=== PATIENT | female | born 1955 | race African-American/Black ===

== ENCOUNTER 2021-05-05 21:05 | Inpatient (IN) | payer MEDICARE, MEDICAID ==
[~2021-05-05] VITALS: Ht 172.7 cm; Wt 135.2 kg
[2021-05-05] MEDS ORDERED: FUROSEMIDE 40MG/4ML VIAL IVP ONE (21:30)
[2021-05-05] MEDS ORDERED: ASPIRIN 81MG TABLET PO ONE (21:30)
[2021-05-05 22:39] LABS: BASOPHILS % 0.9 % (0.0-2.0); EOSINOPHILS % 5.2 % (0.0-5.0); HEMATOCRIT. 28.6 % (36.0-48.0); HEMOGLOBIN. 9.2 g/dL (12.0-16.0); LYMPHOCYTES % 12.4 % (20.0-50.0); MEAN CORPUSCULAR HEMOGLOBIN 23.1 pg (28.0-32.0); MEAN CORPUSCULAR VOLUME 71.8 fL (81.0-99.0); MEAN PLATELET VOLUME 8.2 fl (7.4-10.4); NEUTROPHILS % 74.5 % (40.0-76.0); PLATELET 192 x1000/uL (130-400); RED BLOOD CELL COUNT 3.98 mill/uL (4.2-5.4); RED CELL DISTRIBUTION WIDTH 22.5 % (11.6-14.6)
[2021-05-05 22:44] LABS: CHLORIDE 113 mEq/L (98-107)
[2021-05-05 22:51] LABS: PLATELET ESTIMATE NORMAL
[2021-05-05 22:59] LABS: CLARITY URINE CLEAR (CLEAR); COLOR URINE YELLOW (YELLOW); KETONES URINE NEGATIVE (NEGATIVE); LEUKOCYTE ESTERASE URINE NEGATIVE (NEGATIVE); NITRITE URINE NEGATIVE (NEGATIVE); OCCULT BLOOD URINE NEGATIVE (NEGATIVE); PROTEIN URINE 3+ (NEGATIVE); SPECIFIC GRAVITY URINE 1.014 (1.005-1.030); UROBILINOGEN URINE 0.2 E.U./dL (0.2-1.0)
[2021-05-05] MEDS ORDERED: AMLODIPINE 5MG TABLET PO ONE (23:00)
[2021-05-05] MEDS ORDERED: CLONIDINE 0.1MG TABLET PO ONE (23:00)
[2021-05-06] VITALS (8 sets, daily range): BP systolic 134–187; BP diastolic 50–92
[2021-05-06] MEDS ORDERED: ASPI-864 PO (03:18)
[2021-05-06] MEDS ORDERED: AMLO5TAB88 PO (03:18)
[2021-05-06] MEDS ORDERED: GABA-532 PO (03:18)
[2021-05-06] MEDS ORDERED: FOLI-43 PO (03:18)
[2021-05-06] MEDS ORDERED: ACETAMINOPHEN 325MG TABLET PO PRN (03:45)
[2021-05-06] MEDS ORDERED: ONDANSETRON HCL 4MG/2ML INJ IV PRN (03:45)
[2021-05-06] MEDS ORDERED: ALBUTEROL 6.7GM HFA INHALER ORI PRN (03:45)
[2021-05-06] MEDS ORDERED: LISINOPRIL 20MG TABLET PO SCH (09:00)
[2021-05-06] MEDS ORDERED: CARVEDILOL 6.25 MG TABLET PO SCH (09:00)
[2021-05-06] MEDS ORDERED: ENOXAPARIN 30MG/0.3ML SYR SUBCUT SCH (09:00)
[2021-05-06] MEDS: FUROSEMIDE 40MG/4ML VIAL IVP SCH ×2 (09:07→18:00)
[2021-05-06] MEDS: AMLODIPINE 10MG TABLET PO SCH (09:08)
[2021-05-06] MEDS ORDERED: HYDRALAZINE HCL 100MG TABLET PO SCH (12:15)
[2021-05-06 20:09] LABS: HEMATOCRIT. 26.7 % (36.0-48.0); HEMOGLOBIN. 8.7 g/dL (12.0-16.0); MEAN CORPUSCULAR HEMOGLOBIN 23.5 pg (28.0-32.0); MEAN CORPUSCULAR VOLUME 71.9 fL (81.0-99.0); MEAN PLATELET VOLUME 8.2 fl (7.4-10.4); PLATELET 147 x1000/uL (130-400); RED BLOOD CELL COUNT 3.72 mill/uL (4.2-5.4)
[2021-05-06] MEDS: HYDRALAZINE HCL 100MG TABLET PO SCH (21:35)
[2021-05-06] MEDS: CARVEDILOL 12.5MG TABLET PO SCH (21:35)
[2021-05-06 21:52] LABS: PLATELET ESTIMATE NORMAL
[2021-05-07] VITALS: BP 150/82
[2021-05-07] MEDS ORDERED: ALBUTEROL (0.083%) 2.5MG/3ML NEB HHN PRN (02:00)
[2021-05-07] MEDS ORDERED: CLONIDINE 0.1MG TABLET PO PRN (02:00)
[2021-05-07] MEDS ORDERED: DEXTROSE 50% WATER 50ML SYRINGE IV PRN ×2 (08:15→08:30)
[2021-05-07 08:18] VITALS: BP 157/63
[2021-05-07] MEDS: AMLODIPINE 10MG TABLET PO SCH (08:58)
[2021-05-07] MEDS: FUROSEMIDE 40MG/4ML VIAL IVP SCH ×2 (08:58→17:25)
[2021-05-07] MEDS: ENOXAPARIN 40MG/0.4ML SYR SUBCUT SCH (08:58)
[2021-05-07] MEDS: CARVEDILOL 12.5MG TABLET PO SCH ×2 (08:58→22:45)
[2021-05-07] MEDS: HYDRALAZINE HCL 100MG TABLET PO SCH ×2 (08:59→22:45)
[2021-05-07 09:08] LABS: BASOPHILS % 1.2 % (0.0-2.0); HEMATOCRIT. 25.8 % (36.0-48.0); HEMOGLOBIN. 8.1 g/dL (12.0-16.0); LYMPHOCYTES % 19.7 % (20.0-50.0); MEAN CORPUSCULAR HEMOGLOBIN 23.1 pg (28.0-32.0); MEAN CORPUSCULAR VOLUME 73.5 fL (81.0-99.0); MONOCYTES % 8.9 % (2.0-8.0); NEUTROPHILS % 64.2 % (40.0-76.0); PLATELET 140 x1000/uL (130-400); RED BLOOD CELL COUNT 3.52 mill/uL (4.2-5.4); RED CELL DISTRIBUTION WIDTH 22.5 % (11.6-14.6)
[2021-05-07] MEDS: BLOOD SUGAR DIAGNOSTIC STRIP TEST SCH ×5 (12:05→21:00)
[2021-05-07 12:07] VITALS: BP 147/60
[2021-05-07] MEDS: INSULIN LISPRO 100 UNITS/ML SUBCUT SCH ×3 (12:09→22:46)
[2021-05-07 15:59] VITALS: BP 149/73
[2021-05-07 20:00] VITALS: BP 169/77
[2021-05-08] VITALS: BP 155/72
[2021-05-08 04:00] VITALS: BP_SYST 129; BP_SYST 145; BP_SYST 156; BP_DIAS 60; BP_DIAS 62; BP_DIAS 84
[2021-05-08 05:11] LABS: EOSINOPHILS % 4.8 % (0.0-5.0); HEMOGLOBIN. 8.4 g/dL (12.0-16.0); MEAN CORPUSCULAR HEMOGLOBIN 22.8 pg (28.0-32.0); MEAN CORPUSCULAR VOLUME 72.9 fL (81.0-99.0); MEAN PLATELET VOLUME 8.2 fl (7.4-10.4); MONOCYTES % 8.6 % (2.0-8.0); NEUTROPHILS % 65.6 % (40.0-76.0); PLATELET 144 x1000/uL (130-400); RED CELL DISTRIBUTION WIDTH 21.9 % (11.6-14.6)
[2021-05-08] MEDS: BLOOD SUGAR DIAGNOSTIC STRIP TEST SCH ×4 (07:33→21:05)
[2021-05-08] MEDS: INSULIN LISPRO 100 UNITS/ML SUBCUT SCH ×4 (07:37→21:05)
[2021-05-08 08:03] VITALS: BP 150/57
[2021-05-08] MEDS: ENOXAPARIN 40MG/0.4ML SYR SUBCUT SCH (09:13)
[2021-05-08] MEDS: CARVEDILOL 12.5MG TABLET PO SCH ×2 (09:14→21:02)
[2021-05-08] MEDS: AMLODIPINE 10MG TABLET PO SCH (09:14)
[2021-05-08] MEDS: FUROSEMIDE 40MG/4ML VIAL IVP SCH ×2 (09:15→17:02)
[2021-05-08] MEDS: HYDRALAZINE HCL 100MG TABLET PO SCH ×2 (09:15→21:02)
[2021-05-08 11:14] VITALS: BP 131/56
[2021-05-08 14:34] VITALS: BP 131/56
[2021-05-08 20:00] VITALS: BP 168/66
== END 2021-05-08 21:30 | DRG 291 ==
LOC: ER 21:05 → ENRESERV 05-06 01:41 → 7WST 05-06 01:46 → EDBEDREQ 05-06 01:50 → EDBEDREQTM 05-06 01:50 → 6WST 05-06 11:37
PROVIDERS: ADMIT Internal Medicine Nephrology; ATTEND Internal Medicine Nephrology
DX: I13.0 Hypertensive heart and chronic kidney disease with heart failure and stage 1 through stage 4 chronic kidney disease, or unspecified chronic kidney disease (principal); J96.01 Acute respiratory failure with hypoxia; I50.33 Acute on chronic diastolic (congestive) heart failure; N17.9 Acute kidney failure, unspecified; Z68.42 Body mass index [BMI] 45.0-49.9, adult; N18.4 Chronic kidney disease, stage 4 (severe); Z20.822 Contact with and (suspected) exposure to COVID-19; I16.0 Hypertensive urgency; E11.22 Type 2 diabetes mellitus with diabetic chronic kidney disease; J44.9 Chronic obstructive pulmonary disease, unspecified; D64.9 Anemia, unspecified; E66.01 Morbid (severe) obesity due to excess calories
CPT/HCPCS: 36415; 71045; 80048; 80053; 81003; 82962; 83036; 83605; 83735; 83880; 84484; 85025; 87426; 93005; 93306; 97161; 99285; J1650; J1815; J1940

== ENCOUNTER 2023-06-22 22:01 | Inpatient (IN) | payer MEDICARE, MEDICAID ==
[~2023-06-22] VITALS: Ht 170.2 cm; Wt 123.4 kg
[~2023-06-22 22:01] MED LIST: AMLO5TAB88 PO; ASPI-864 PO; FOLI-43 PO; GABA-532 PO
[2023-06-22 23:22] LABS: PROTHROMBIN TIME 10.3 sec (9.6-11.0)
[2023-06-22 23:27] LABS: CHLORIDE 103 mEq/L (98-107); INDEX HEMOLYSI 1 (1-3); INDEX ICTERIC 1 (1-4); INDEX LIPEMIC 1 (1-3); POTASSIUM 4.9 mEq/L (3.5-5.1); SODIUM 137 mEq/L (136-145)
[2023-06-22 23:28] LABS: BASOPHILS % 0.9 % (0.0-2.0); EOSINOPHILS % 4.4 % (0.0-5.0); LYMPHOCYTES % 15.6 % (20.0-50.0); MEAN CORPUSCULAR HEMOGLOBIN 26.2 pg (28.0-32.0); MEAN CORPUSCULAR HGB CONC 31.4 g/dL (31.0-37.0); MEAN CORPUSCULAR VOLUME 83.6 fL (81.0-99.0); MEAN PLATELET VOLUME 8.3 fl (7.4-10.4); MONOCYTES % 7.3 % (2.0-8.0); NEUTROPHILS % 71.8 % (40.0-76.0); PLATELET 115 x1000/uL (130-400); RED BLOOD CELL COUNT 4.18 mill/uL (4.2-5.4); RED CELL DISTRIBUTION WIDTH 20.5 % (11.6-14.6); WHITE BLOOD COUNT 6.1 x1000/uL (4.5-11.0)
[2023-06-22 23:38] LABS: ALANINE AMINOTRANSFERASE 21 IU/L (13-61); ALBUMIN 3.3 g/dL (3.4-5.0); ASPARTATE AMINOTRANSFERASE 15 IU/L (15-37); BILIRUBIN TOTAL 0.3 mg/dL (0.1-1.0); CALCIUM 8.5 mg/dL (8.5-10.1); CARBON DIOXIDE 24 mEq/L (21-32); ETHANOL BLOOD < 10 mg/dL (<10); GLUCOSE 361 mg/dL (70-105); PROTEIN TOTAL 7.8 g/dL (6.0-8.3); TROPONIN I HIGH SENSITIVITY 26 ng/L (<54); UREA NITROGEN BLOOD 60 mg/dL (7-21)
[2023-06-23] VITALS (13 sets, daily range): BP systolic 110–198; BP diastolic 68–96; PULSE 68–94; RESP 16–24; TEMP 97.8–98.4
[2023-06-23 00:31] LABS: CREATININE 6.9 mg/dL (0.6-1.3)
[2023-06-23 02:43] LABS: CLARITY URINE CLEAR (CLEAR); COLOR URINE YELLOW (YELLOW); GLUCOSE URINE 2+ (NEGATIVE); KETONES URINE NEGATIVE (NEGATIVE); LEUKOCYTE ESTERASE URINE NEGATIVE (NEGATIVE); NITRITE URINE NEGATIVE (NEGATIVE); OCCULT BLOOD URINE TRACE (NEGATIVE); PH URINE 6.5 (4.5-8.0); PROTEIN URINE 3+ (NEGATIVE); SPECIFIC GRAVITY URINE 1.015 (1.005-1.030); UROBILINOGEN URINE 0.2 E.U./dL (0.2-1.0)
[2023-06-23 03:22] LABS: *AMPHETAMINES SCREEN URINE NEGATIVE (NEGATIVE); *BARBITURATES SCREEN URINE NEGATIVE (NEGATIVE); *BENZODIAZEPINES SCREEN URINE NEGATIVE (NEGATIVE); *COCAINE SCREEN URINE NEGATIVE (NEGATIVE); CANNABINOID URINE SCREEN NEGATIVE (NEGATIVE); ECSTASY MDMA SCREEN URINE NEGATIVE (NEGATIVE); METHADONE URINE SCREEN NEGATIVE (NEGATIVE); OPIATES URINE SCREEN NEGATIVE (NEGATIVE); PHENCYCLIDINE URINE SCREEN NEGATIVE (NEGATIVE)
[2023-06-23 05:04] LABS: RBC URINE 0-2 /hpf (0-2); SQUAMOUS EPITHELIAL CELL URINE 1+ /lpf (RARE/1+); WBC URINE 0-2 /hpf (0-2)
[2023-06-23 05:05] LABS: BACTERIA URINE 1+
[2023-06-23] MEDS ORDERED: ONDANSETRON HCL 4MG/2ML INJ IV PRN (07:15)
[2023-06-23] MEDS ORDERED: DEXTROSE 50% WATER 50ML SYRINGE IV PRN (07:15)
[2023-06-23] MEDS: INSULIN LISPRO 100 UNITS/ML SUBCUT SCH ×4 (07:20→21:32)
[2023-06-23] MEDS: ENOXAPARIN 40MG/0.4ML SYR SUBCUT SCH (07:30)
[2023-06-23] MEDS ORDERED: DIPHENHYDRAMINE 50MG CAPSULE PO PRN (11:30)
[2023-06-23] MEDS: BLOOD SUGAR DIAGNOSTIC STRIP TEST SCH ×3 (11:50→21:36)
[2023-06-23] MEDS: ASPIRIN 81MG TABLET PO SCH (14:05)
[2023-06-23] MEDS: AMLODIPINE 10MG TABLET PO SCH (14:05)
[2023-06-23] MEDS: ACETAMINOPHEN 325MG TABLET PO PRN (16:21)
[2023-06-23] MEDS ORDERED: HYDR-4134 PO (18:13)
[2023-06-23] MEDS ORDERED: SEVE800T8 PO (18:13)
[2023-06-23] MEDS ORDERED: GLIP10TA10 PO (18:13)
[2023-06-23] MEDS ORDERED: SEMA0.258 SUBCUT (18:13)
[2023-06-23] MEDS ORDERED: AMLO10TA80 PO (18:13)
[2023-06-23] MEDS ORDERED: ALBU18HF2 IH (18:13)
[2023-06-23] MEDS ORDERED: INSASP SUBCUT (18:13)
[2023-06-24] VITALS: BP 133/73; PULSE 93; RESP 18; TEMP 98.1
[2023-06-24 04:00] VITALS: BP 128/61; PULSE 94; RESP 20; TEMP 98.3
[2023-06-24] MEDS: ACETAMINOPHEN 325MG TABLET PO PRN (05:41)
[2023-06-24] MEDS: BLOOD SUGAR DIAGNOSTIC STRIP TEST SCH ×2 (06:29→11:50)
[2023-06-24] MEDS: INSULIN LISPRO 100 UNITS/ML SUBCUT SCH ×2 (06:29→12:20)
[2023-06-24 08:00] VITALS: BP 133/110; RESP 20; TEMP 97.6
[2023-06-24] MEDS: ASPIRIN 81MG TABLET PO SCH (08:58)
[2023-06-24] MEDS: ENOXAPARIN 40MG/0.4ML SYR SUBCUT SCH (08:58)
[2023-06-24] MEDS: AMLODIPINE 10MG TABLET PO SCH (08:58)
[2023-06-24 13:32] VITALS: BP 133/110; PULSE 75; TEMP 98.7; O2SAT 99
== END 2023-06-24 15:40 | disposition home or self-care (01) | DRG 157 ==
LOC: ER 22:01 → 3WST 06-23 01:46
PROVIDERS: ADMIT Internal Medicine Nephrology; ATTEND Internal Medicine Nephrology
PROC: 5A1D70Z Performance of Urinary Filtration, Intermittent, Less than 6 Hours Per Day (ICD-10-PCS; principal; 2023-06-23)
DX: K12.2 Cellulitis and abscess of mouth (principal); N18.6 End stage renal disease; I13.2 Hypertensive heart and chronic kidney disease with heart failure and with stage 5 chronic kidney disease, or end stage renal disease; Z68.41 Body mass index [BMI] 40.0-44.9, adult; E11.22 Type 2 diabetes mellitus with diabetic chronic kidney disease; E66.9 Obesity, unspecified; G62.9 Polyneuropathy, unspecified; I50.9 Heart failure, unspecified; J44.9 Chronic obstructive pulmonary disease, unspecified; Z99.2 Dependence on renal dialysis; Z88.1 Allergy status to other antibiotic agents; Z88.8 Allergy status to other drugs, medicaments and biological substances; Z79.899 Other long term (current) drug therapy
CPT/HCPCS: 36415; 80053; 80305; 80320; 81003; 82962; 84484; 85025; 90935; 93005; 99285; J1650; J1815; Q0163; G0480

== ENCOUNTER 2024-03-09 13:18 | Emergency (ER) | payer MEDICARE, MEDICAID ==
[~2024-03-09] VITALS: Ht 170.2 cm; Wt 119.0 kg
[~2024-03-09 13:18] MED LIST changes: +ALBU18HF2 IH; +AMLO10TA80 PO; -AMLO5TAB88 PO; -GABA-532 PO; +GLIP10TA10 PO; +HYDR25TA78 PO; +INSASP SUBCUT; +SEMA0.258 SUBCUT; +SEVE800T8 PO
[2024-03-09 13:23] VITALS: O2SAT 99
[2024-03-09 14:10] LABS: BASOPHILS % 1.2 % (0.0-2.0); EOSINOPHILS % 2.8 % (0.0-5.0); HEMATOCRIT. 44.5 % (36.0-48.0); HEMOGLOBIN. 14.2 g/dL (12.0-16.0); LYMPHOCYTES % 20.7 % (20.0-50.0); MEAN CORPUSCULAR HEMOGLOBIN 25.6 pg (28.0-32.0); MEAN CORPUSCULAR HGB CONC 31.9 g/dL (31.0-37.0); MEAN CORPUSCULAR VOLUME 80.1 fL (81.0-99.0); MONOCYTES % 5.6 % (2.0-8.0); NEUTROPHILS % 69.7 % (40.0-76.0); RED BLOOD CELL COUNT 5.56 mill/uL (4.2-5.4); RED CELL DISTRIBUTION WIDTH 24.3 % (11.6-14.6); WHITE BLOOD COUNT 7.3 x1000/uL (4.5-11.0)
[2024-03-09 14:13] LABS: DIFFERENTIAL COMMENT 1
[2024-03-09 14:14] LABS: ADD RBC MORPHOLOGY YES
[2024-03-09 14:21] LABS: TROPONIN I HIGH SENSITIVITY 21 ng/L (3.0-34)
[2024-03-09 14:36] LABS: CARBON DIOXIDE 25 mEq/L (21-32); CHLORIDE 102 mEq/L (98-107); POTASSIUM 4.5 mEq/L (3.5-5.1); SODIUM 136 mEq/L (136-145)
[2024-03-09 14:37] LABS: CALCIUM 9.5 mg/dL (8.7-10.4)
[2024-03-09 14:42] LABS: CREATININE 4.4 mg/dL (0.6-1.0); GLUCOSE 282 mg/dL (70-105); UREA NITROGEN BLOOD 16 mg/dL (9-23)
[2024-03-09 14:47] LABS: ANISOCYTOSIS 4+
[2024-03-09 14:50] LABS: MEAN PLATELET VOLUME 8.2 fl (7.4-10.4); PLATELET 79 x1000/uL (130-400); PLATELET ESTIMATE DECREASED
[2024-03-09] MEDS: HYDRALAZINE 20MG/ML VIAL IV ONE (16:12)
[2024-03-09 17:24] VITALS: TEMP 98.4
[2024-03-09 19:35] VITALS: BP 174/91; PULSE 78; RESP 15
== END 2024-03-09 20:10 | disposition home or self-care (01) ==
LOC: ER 14:33
DX: I10 Essential (primary) hypertension (principal); E11.9 Type 2 diabetes mellitus without complications; Z91.148 Patient's other noncompliance with medication regimen for other reason; Z88.5 Allergy status to narcotic agent; Z88.1 Allergy status to other antibiotic agents; Z79.899 Other long term (current) drug therapy; Z79.82 Long term (current) use of aspirin; Z98.890 Other specified postprocedural states
CPT/HCPCS: 99285; 96374; 70450; 71045; 80048; 83880; 85025; 84484; 36415; 93005; J0360

== ENCOUNTER 2024-04-14 13:50 | Emergency (ER) | payer MEDICARE, MEDICAID ==
[~2024-04-14] VITALS: Ht 170.2 cm; Wt 119.0 kg
[2024-04-14 13:56] VITALS: BP 199/49; PULSE 78; RESP 16; TEMP 98.6; O2SAT 100
[2024-04-14] MEDS: ACETAMINOPHEN 500MG TABLET PO ONE (16:27)
[2024-04-14 18:09] LABS: HEMATOCRIT. 33.8 % (36.0-48.0); HEMOGLOBIN. 10.6 g/dL (12.0-16.0); LYMPHOCYTES % 20.8 % (20.0-50.0); MEAN CORPUSCULAR HEMOGLOBIN 24.8 pg (28.0-32.0); MEAN CORPUSCULAR HGB CONC 31.3 g/dL (31.0-37.0); MEAN CORPUSCULAR VOLUME 79.2 fL (81.0-99.0); MEAN PLATELET VOLUME 8.3 fl (7.4-10.4); MONOCYTES % 7.2 % (2.0-8.0); PLATELET 156 x1000/uL (130-400); RED BLOOD CELL COUNT 4.27 mill/uL (4.2-5.4); RED CELL DISTRIBUTION WIDTH 23.9 % (11.6-14.6); WHITE BLOOD COUNT 6.7 x1000/uL (4.5-11.0)
[2024-04-14 18:11] LABS: DIFFERENTIAL COMMENT 1
[2024-04-14 18:15] LABS: POTASSIUM 4.9 mEq/L (3.5-5.1)
[2024-04-14 18:16] LABS: CALCIUM 9.6 mg/dL (8.7-10.4)
[2024-04-14 18:30] LABS: CREATININE 6.2 mg/dL (0.6-1.0)
== END 2024-04-14 23:00 | disposition home or self-care (01) ==
LOC: ER 13:50 → CANBEDREQ 18:26 → ER 23:00
DX: S06.0X0A Concussion without loss of consciousness, initial encounter (principal); N18.6 End stage renal disease; E11.22 Type 2 diabetes mellitus with diabetic chronic kidney disease; I12.0 Hypertensive chronic kidney disease with stage 5 chronic kidney disease or end stage renal disease; Z99.2 Dependence on renal dialysis; Z98.890 Other specified postprocedural states; Z88.8 Allergy status to other drugs, medicaments and biological substances; X58.XXXA Exposure to other specified factors, initial encounter; Y93.89 Activity, other specified; Y92.89 Other specified places as the place of occurrence of the external cause; Y99.8 Other external cause status
CPT/HCPCS: 36415; 71045; 80048; 85025; 99284